=== PATIENT | male | born 1945 | race Caucasian/White ===

== ENCOUNTER 2016-10-26 14:28 | Day surgery (SDC) | payer MEDICARE, OTHER ==
[2016-10-26] VITALS (7 sets, daily range): BP systolic 120–179; BP diastolic 61–94; PULSE 85–99; RESP 16; TEMP 97.8–98.6; O2SAT 94–97
[~2016-10-26] VITALS: Ht 185.4 cm; Wt 91.0 kg
[~2016-10-26 14:28] MED LIST: ADVAI500I INH; ALBU0.086 INH; CARD8TAB6 PO; CIAL5TAB PO; CYMB60CA PO; DIAZ5 PO; DULC100C; FLON0.053; GLUC15002; LISI-360 PO; OMEP20CA5 PO; ONDANSETRON HCL 4 MG/2 ML VIAL IV PUSH ONE; PRAV40TA2 PO; PROPOFOL 200 MG/20 ML AMP IV ONE; WELLTAB39 PO; ZYRT10TA12 PO
[2016-10-26] MEDS ORDERED: CADU5TAB2 PO (14:58)
[2016-10-26] MEDS ORDERED: OMEP20TA PO (14:58)
[2016-10-26] MEDS ORDERED: DIAZ2TAB PO (14:58)
[2016-10-26] MEDS ORDERED: TRENTAL PO (14:58)
[2016-10-26] MEDS ORDERED: MONT10TA2 PO (14:58)
[2016-10-26] MEDS ORDERED: VITA60003 PO (14:58)
[2016-10-26] MEDS ORDERED: BUPR300T PO (14:58)
[2016-10-26] MEDS ORDERED: CARD8TAB2 PO (14:58)
[2016-10-26] MEDS ORDERED: ADVA500A INH (14:58)
[2016-10-26] MEDS ORDERED: MULT1TAB84 PO (14:58)
[2016-10-26] MEDS ORDERED: FLUT1SPR5 EACH NARE (14:58)
[2016-10-26] MEDS ORDERED: SPIR25TA PO (14:59)
[2016-10-26] MEDS ORDERED: HYDROmorphone HCL PF 1 MG/ML VIAL IV PUSH ONE ×2 (15:00→16:15)
[2016-10-26 16:09] LABS: APTT (PATIENT) 26.4 SEC (24.3-30.1); PROTHROMBIN TIME - PATIENT 11.4 SEC (9.8-11.6)
--- NOTE | 2016-10-26 16:14 | RADRPT ---
EXAM DATE/TIME: 10/26/2016 15:24 [place] COMPARISON: No previous studies available for comparison. INDICATIONS : Table saw injury to the first, second, third, and fourth digits of the left hand. MEDICAL HISTORY : None. SURGICAL HISTORY : None. ENCOUNTER: Initial ACUITY: 1 day PAIN SCORE: 10/10 LOCATION: Left hand FINDINGS: There is crushing fractures of the second third and fourth distal phalanges worse involving the secon d and third phalanges with extensive soft tissue injury. CONCLUSION: Extensive crushing injury and fractures of the second, third and fourth distal phalanges. Lilinaa Randhawa MD on October 26, 2016 at 16:12 Board Certified Radiologist. This report was verified electronically.
[2016-10-26] MEDS ORDERED: SODIUM CHLOR 0.9% 1000 ML INJ 1,000 ML IV ONE (16:15)
[2016-10-26 16:29] LABS: BICARBONATE 24.5 MEQ/L (21.0-32.0); POTASSIUM 3.6 MEQ/L (3.5-5.1)
[2016-10-26] MEDS ORDERED: BUPIVACAINE HCL PF 0.25% 30 ML VIAL INFIL ONE (17:45)
--- NOTE | 2016-10-26 18:57 | MB ---
cc: ALLYSON PACHECO M.D. DATE OF CONSULTATION 10/26/2016 REASON FOR CONSULTATION Left hand injury. HISTORY OF PRESENT ILLNESS The patient is a 71-year-old male who injured his left hand at home on a table saw. The patient was seen in the emergency room. Consultation is requested regarding evaluation and treatment of the hand injury. ALLERGIES THE PATIENT HAS ALLERGIES TO POSSIBLY A BETA KELI, FLU VACCINE, MACRODANTIN AND NIACIN. PAST MEDICAL HISTORY 1. The patient has history of anxiety disorder. 2. Heart disease. 3. Has a history of melanoma for which he has been treated. SOCIAL HISTORY The patient quit smoking 50 years ago. Alcohol use is daily with dinner. PHYSICAL EXAMINATION GENERAL: On examination the patient is lying comfortably on the stretcher. VITAL SIGNS: Temperature is 98.1, pulse is 89, respirations 16, blood pressure 168/94 and pulse oximetry is 94% on room air. HEENT: His extraocular muscles are intact. Pupils are equal, round and reactive to light. His mouth is clear. NECK: Supple without masses. LUNGS: Clear. HEART: Regular rate and rhythm. EXTREMITIES: Examination of his upper extremities reveals injuries to the left hand. There is pulp missing from the pad of the thumb. There are open fractures on the second and third distal phalanges with some of the tissue missing from the third finger. There appears to be extensor tendon injury at the distal interphalangeal joint of the third finger. There is also a laceration of the fourth finger. IMAGING Review of the x-rays reveals injury to the fingers as noted above with some tissue loss. The index distal phalanx is comminuted as is the distal phalanx of the middle finger. There does not appear to be a fracture of the thumb, just the tissue loss. IMPRESSION Open fractures and soft tissue loss of left hand. PLAN Treatment of the injuries as appropriate. The patient understands and accepts the risks and complications of surgery as well as the need for a cross-finger flap for his thumb. MD SERGE Mayo/JOSHUA /6:40 PM /6:52 PM
[2016-10-26] MEDS ORDERED: ceFAZolin INJ 1,000 MG VIAL IV ONE (19:14)
[2016-10-26] MEDS ORDERED: ACETAMINOPHEN 1000 MG/100 ML VIAL IV ONE (19:36)
[2016-10-26 19:37] LABS: AUTOMATED NEUTROPHIL # 9.6 TH/MM3 (1.8-7.7); BASOPHIL % 0.4 % (0.0-2.0); EOSINOPHIL # 0.1 TH/MM3 (0-0.4); EOSINOPHIL % 1.2 % (0.0-4.0); HEMATOCRIT 45.3 % (39.0-51.0); HEMO FLAGS DIFF FINAL; LYMPH % 9.7 % (9.0-44.0); LYMPHOCYTE # 1.1 TH/MM3 (1.0-4.8); MEAN CELL VOLUME 92.9 FL (80.0-100.0); MEAN CORPUSCULAR HEMOGLOBIN 31.4 PG (27.0-34.0); MEAN CORPUSCULAR HGB CONC 33.8 % (32.0-36.0); MONO % 5.6 % (0.0-8.0); NEUT % 83.1 % (16.0-70.0); PLATELET COUNT 249 TH/MM3 (150-450); RED BLOOD COUNT 4.87 MIL/MM3 (4.50-5.90); RED CELL DISTRIBUTION WIDTH 13.7 % (11.6-17.2); WHITE BLOOD COUNT 11.6 TH/MM3 (4.0-11.0)
--- NOTE | 2016-10-26 19:59 | PD ---
HPI Chief Complaint: Laceration/Skin Injury Time Seen by Provider: 14:42 Travel History International Travel<30 days: No Contact w/Intl Traveler<30days: No Traveled to known affect area: No History of Present Illness HPI Patient is a 71-year-old male who comes in after a table saw accident. He was helping a friend in the table saw got stuck and he tried to fix it and cut his left hand. EMS was immediately called and brought him in. He denies any other injuries. He was feeling in his normal state of health prior to the injury. He reports history of anxiety and is feeling very anxious currently. PFSH Past Medical History Asthma: Yes (QUESTIONABLE) Anxiety: Yes Depression: Yes Cancer: Yes (SKIN CANCER RIGHT UPPER ARM FOR MELANOMA 2006) Cardiac Catheterization: Yes Cardiovascular Problems: Yes (HTN) High Cholesterol: Yes Hiatal Hernia: Yes Hypertension: Yes Kidney Stones: Yes Respiratory: Yes (SINUS PROBLEMS) Tetanus Vaccination: < 5 Years Influenza Vaccination: No Past Surgical History Ear Surgery: Yes (RHINOPLASTY) Tonsillectomy: Yes Other Surgery: Yes (, NASAL SURGERY) Social History Alcohol Use: Yes (BEER WITH DINNER AT NIGHT) Tobacco Use: No Substance Use: No Allergies-Medications (Allergen,Severity, Reaction): Coded Allergies: Flu Vaccine (Verified Allergy, Severe, Anaphylaxis, 10/26/16) Macrodantin (Verified Allergy, Severe, RASH, 10/26/16) Niacin (Verified Allergy, Severe, Hives, 10/26/16) Uncoded Allergies: ?BETA KELI (Allergy, Mild, 07/02/07) Reported Meds & Prescriptions Reported Meds & Active Scripts Active Reported Spironolactone 25 Mg Tab 25 Mg PO DAILY Vitamin E (Vitamin E (Topical)) 100 Unit/Gm Cre Unknown Dose PO DAILY Multivitamin Adults (Multiple Vitamins W/ Minerals) 1 Tab 1 Tab PO DAILY [Trental] 200 Mg PO BID Bupropion HCl ER 24 HR (Bupropion HCl) 300 Mg Tab 300 Mg PO DAILY Diazepam 2 Mg Tab 2 Mg PO BID Omeprazole 20 Mg Tab 20 Mg PO DAILY Singulair (Montelukast Sodium) 10 Mg Tab 10 Mg PO HS Flonase Nasal [place] (Fluticasone Nasal [place]) 50 Mcg/Act [place] 50 Mcg EACH NARE DAILY Advair Diskus Inh (Fluticasone-Salmeterol Inh) 500-50 Mcg/Blist Aer 1 Puff INH DAILY Rinse mouth after use. Cardura (Doxazosin Mesylate) 8 Mg Tab 8 Mg PO DAILY [place] (Amlodipine-Atorvastatin) 5-20 Mg Tab 1 Tab PO DAILY Review of Systems Except as stated in HPI: all other systems reviewed are Neg General / Constitutional: No: Fever, Chills HENT: No: Headaches, Lightheadedness Cardiovascular: No: Chest Pain or Discomfort Respiratory: No: Shortness of Breath Gastrointestinal: No: Nausea, Vomiting Musculoskeletal: Positive: Pain Skin: No Rash Neurologic: No: Weakness, Dizziness Physical Exam Narrative GENERAL: Awake and alert, anxious SKIN: Located lacerations of the left second, third, and fourth finger as well as the left thumb. HEAD: Atraumatic. Normocephalic. EYES: Pupils equal and round. No scleral icterus. ENT: Mucous membranes pink and moist. NECK: Trachea midline. No JVD. CARDIOVASCULAR: Regular rate and rhythm. No murmur appreciated. RESPIRATORY: No accessory muscle use. Clear to auscultation. Breath sounds equal bilaterally. MUSCULOSKELETAL: Obvious deformities of the left second third and fourth fingers. He is able to fully extend and flex all of his fingers. Sensation is intact to his entire left hand. Radial pulses intact. NEUROLOGICAL: Awake and alert. No obvious cranial nerve deficits. Motor grossly within normal limits. Normal speech. PSYCHIATRIC: Appropriate mood and affect; insight and judgment normal. Data Data Last Documented VS Vital Signs Date Time Temp Pulse Resp B/P Pulse Ox O2 Delivery O2 Flow Rate FiO2 10/26/16 17:00 89 16 159/70 94 Room Air 10/26/16 16:35 98.1 Orders Hand, Complete ([id number]) (10/26/16 ) Hydromorphone Pf Inj (Dilaudid Pf Inj) (10/26/16 15:00) Cefazolin Inj (Ancef Inj) (10/26/16 15:00) Complete Blood Count With Diff (10/26/16 14:58) Basic Metabolic Panel (Bmp) (10/26/16 14:58) Act Partial Throm Time (Ptt) (10/26/16 14:58) Prothrombin Time / Inr (Pt) (10/26/16 14:58) Hydromorphone Pf Inj (Dilaudid Pf Inj) (10/26/16 16:15) Sodium Chlor 0.9% 1000 Ml Inj (Ns 1000 M (10/26/16 16:15) Bupivacaine Pf 0.25% Inj (Marcaine Pf 0. (10/26/16 17:45) Admit Order (Ed Use Only) (10/26/16 ) Labs Laboratory Tests Test 10/26/16 10/26/16 15:10 15:20 Prothrombin Time 11.4 SEC Prothromb Time International 1.0 RATIO Ratio Activated Partial 26.4 SEC Thromboplast Time Sodium Level 143 MEQ/L Potassium Level 3.6 MEQ/L Chloride Level 110 MEQ/L Carbon Dioxide Level 24.5 MEQ/L Anion Gap 9 MEQ/L Blood Urea Nitrogen 23 MG/DL Creatinine 1.08 MG/DL Estimat Glomerular Filtration 67 ML/MIN Rate Random Glucose 127 MG/DL Calcium Level 8.7 MG/DL White Blood Count 11.6 TH/MM3 Red Blood Count 4.87 MIL/MM3 Hemoglobin 15.3 GM/DL Hematocrit 45.3 % Mean Corpuscular Volume 92.9 FL Mean Corpuscular Hemoglobin 31.4 PG Mean Corpuscular Hemoglobin 33.8 % Concent Red Cell Distribution Width 13.7 % Platelet Count 249 TH/MM3 Mean Platelet Volume 8.7 FL Neutrophils (%) (Auto) 83.1 % Lymphocytes (%) (Auto) 9.7 % Monocytes (%) (Auto) 5.6 % Eosinophils (%) (Auto) 1.2 % Basophils (%) (Auto) 0.4 % Neutrophils # (Auto) 9.6 TH/MM3 Lymphocytes # (Auto) 1.1 TH/MM3 Monocytes # (Auto) 0.6 TH/MM3 Eosinophils # (Auto) 0.1 TH/MM3 Basophils # (Auto) 0.0 TH/MM3 CBC Comment DIFF FINAL Differential Comment MDM Medical Decision Making Medical Screen Exam Complete: Yes Emergency Medical Condition: Yes Differential Diagnosis Open fracture versus complex laceration versus partial amputation Narrative Course Patient is a 71-year-old male who comes in after a table saw accident. Exam shows complex lacerations and deformities of the left thumb, second, third, fourth fingers. Eyes, labs sent. Patient given Dilaudid for pain. Hand surgery consult it. X-ray performed shows a bojorquez injuries of the second, third , and fourth finger. Given Ancef. Patient had a tetanus vaccine in the past 5 years. Patient taken to the OR by Dr. Moyer. Will be dispositioned from the OR. Diagnosis Primary Impression: Crush injury of hand Qualified Code: S67.22XA - Crush injury of hand, left, initial encounter Additional Impression: Open fracture Admitting Information Admitting Physician Requests: Admit Cammie Kessler MD Oct 26, 2016 19:59
[2016-10-26] MEDS ORDERED: DO NOT ADM ANY ANTICOAGULANT DRUGS PRN (21:52)
[2016-10-26] MEDS ORDERED: DEXT 5%-NACL 0.45% 1000 ML INJ 1,000 ML IV SCH (21:53)
--- NOTE | 2016-10-26 21:53 | HHI.PR ---
Immediate Post Op Note Procedure Date: Oct 26, 2016 Pre Op Diagnosis: (1) Open fracture (2) Open wound of hand, complicated Post Op Diagnosis: (1) Open fracture (2) Open wound of hand, complicated Surgeon: Vani Moyer Box Sealing Machine Feeder(s): None. Procedure: 1. Cross finger flap to left thumb from index finger. 2. Full thickness skin graft to donor area left index finger. 3. Repair open fractures and complex wound left index finger. 4. Repair open fractures and complex wound left third finger. 5. Repair laceration to left ring finger. Anesthesia: General Drains: None Tourniquet time (min at mmHg) 120 minutes at 220 mmHg Patient to: PACU Patient Condition: Good Date/Time of Procedure: SEE SURGICAL CARE RECORD Vani Moyer MD Oct 26, 2016 21:53
[2016-10-26] MEDS ORDERED: NORC5TAB PO (21:56)
[2016-10-26] MEDS ORDERED: IBUP800T23 PO (21:56)
[2016-10-26] MEDS ORDERED: fentaNYL CITRATE 250 MCG/5 ML AMP ONE (21:59)
[2016-10-26] MEDS ORDERED: MORPHINE SULFATE 4 MG/ML INJ ONE (21:59)
[2016-10-26] MEDS ORDERED: KETOROLAC TROMETHAMINE 30 MG/ML (IVP) VIAL IVP ONE (22:00)
[2016-10-26] MEDS ORDERED: SODIUM CHLORIDE 0.9% FLUSH 5 ML FLUSH IVF PRN (22:00)
[2016-10-27] MEDS ORDERED: SODIUM CHLORIDE 0.9% FLUSH 5 ML FLUSH IVF SCH (09:00)
--- NOTE | 2016-10-28 08:46 | MP ---
cc: ALLYSON PACHECO M.D. DATE OF SURGERY 10/26/2016 PREOPERATIVE DIAGNOSIS Open wound of left hand from a table saw. POSTOPERATIVE DIAGNOSES 1. Pulp loss distal phalanx left thumb. 2. Open fractures with complex wound left index finger distal phalanx. 3. Open fractures and complex wound third finger distal phalanx left hand. 4. Laceration distal phalanx of left hand ring finger. POSTOPERATIVE DIAGNOSES 1. Pulp loss distal phalanx left thumb. 2. Open fractures with complex wound left index finger distal phalanx. 3. Open fractures and complex wound third finger distal phalanx left hand. 4. Laceration distal phalanx of left hand ring finger. PROCEDURES 1. Cross-finger flap to left thumb from index finger. 2. Full-thickness skin graft from arm to donor area on index finger. 3. Repair open fractures and complex wound of left index finger, 3-cm in length. 4. Repair open fractures and complex wound distal phalanx of left third finger, 4-cm in length. 5. Repair 2-cm laceration of left ring finger distal phalanx. ANESTHESIA General. SURGEON Dr. Pacheco INDICATION A 71-year-old male who was injured by a table saw earlier today. FINDINGS At the completion of the procedure, all wounds had been approximated and closed. TOURNIQUET TIME 2 hours. PROCEDURE The patient was seen preoperatively. The sites and side were identified and marked. The patient was then taken to the operating room, placed in supine position. His identity was checked against the arm band and the consent form, site and side confirmed, time-out called prior to beginning the procedure. The left upper extremity was prepped with Hibiclens and draped in the usual sterile fashion. The arm was exsanguinated and the tourniquet inflated to 220 mmHg. Bupivacaine 0.25% plain was used make a median nerve block as well as a dorsal radial nerve block as well as block of the ulnar digital nerve of the left ring finger. Attention was turned to the ring finger first where the wound was copiously irrigated with saline and closed with interrupted 5-0 nylon suture material. Once this was approximated, attention was turned to the third finger where the bits of bone wound were debrided as was some extensor tendon and some nail bed. The wounds were then repaired with 5-0 Prolene. Attention was turned to the index finger where the tip was repaired. Part of it had to be debrided as they were partially devitalized. The nail plate was cut back. The nail bed was approximated by approximating the nail plate which was sewn as well as many sutures to the lacerated pulp of the finger. Attention then turned to the thumb which was debrided and irrigated. A flap was created by incising on three sides of the dorsal aspect of the index finger over the proximal phalanx. The incision was made down through the skin, down to the subcutaneous tissue. Under loupe magnification the flap was elevated and raised, small vessels were cauterized with bipolar cautery. It was then sewn into the thumb as a cross-finger flap. A skin graft was harvested by taking piece of skin as an ellipse. The defect measured 2 cm x 1.5 cm. The ellipse was drawn, was infiltrated with bupivacaine and cut with a 15 blade. Undermining was carried out and the wound was closed with interrupted 4-0 Vicryl and 5-0 nylon to the skin. The excess subcutaneous tissue was removed off of the skin graft and it was then sewn into the defect with 5-0 Prolene suture material. Once it was sewn into place, several cuts were made in the graft to allow for drainage. A central basting stitch was made. Several sutures were left long. Povidone-iodine ointment was then applied to the graft along with Adaptic, Telfa and cotton ball which were sewn on top of the graft as a bolus. The tourniquet was released after 2 hours of tourniquet time. The hand was then cleansed of Betadine, Hibiclens and blood and dressed with povidone-iodine ointment, Adaptic, Telfa, fluffy gauze, hand wrap and a splint. The patient was then taken from the operating room to the recovery room in satisfactory condition having tolerated the procedure well. Postoperative structures include keeping the arm elevated, keeping it clean and dry and returning in several days for followup. The patient was given a prescription for [place] and ibuprofen. MD SERGE Mayo/YONAS /10:00 PM /8:22 AM
[2016-11-10] MEDS ORDERED: VIAG100T PO (09:53)
[2016-11-12] MEDS ORDERED: IBUP800T23 PO (10:12)
== END 2016-10-26 23:13 | disposition home or self-care (01) ==
LOC: NEPE 14:28 → NEDA 18:18 → HSDC 18:18 → NEPE 23:13
PROVIDERS: ATTEND Specialist
DX: S62.631B Displaced fracture of distal phalanx of left index finger, initial encounter for open fracture (principal); S62.633B Displaced fracture of distal phalanx of left middle finger, initial encounter for open fracture; S61.002A Unspecified open wound of left thumb without damage to nail, initial encounter; S61.215A Laceration without foreign body of left ring finger without damage to nail, initial encounter; M79.642 Pain in left hand; F41.9 Anxiety disorder, unspecified; I10 Essential (primary) hypertension; W31.2XXA Contact with powered woodworking and forming machines, initial encounter
CPT/HCPCS: 00300; 11010; 12001; 13131; 14350; 15240; 73130; 80048; 85025; 85610; 85730; 96365; 96375; 96376; 99284; J0131; J0690; J1170; J1885; J2270; J2405; J3010; J7030

== ENCOUNTER → 2016-11-10 | Day surgery (SDC) | payer MEDICARE, OTHER ==
[~2016-11-10] VITALS: Ht 185.4 cm; Wt 91.0 kg
[~2016-11-10] MED LIST changes: +ADVA500A INH; -ADVAI500I INH; -ALBU0.086 INH; +BUPIVACAINE HCL PF 0.5% 30 ML VIAL ONE; +BUPR300T PO; +CADU5TAB2 PO; +CARD8TAB2 PO; -CARD8TAB6 PO; -CIAL5TAB PO; -CYMB60CA PO; +DEXT 5%-NACL 0.45% 1000 ML INJ 1,000 ML IV SCH; +DIAZ2TAB PO; -DIAZ5 PO; -DULC100C; +FAMOTIDINE 20 MG/2 ML VIAL ONE; -FLON0.053; +FLUT1SPR5 EACH NARE; -GLUC15002; +IBUP800T23 PO; +LACTATED RINGER'S 1000 ML INJ 1,000 ML ONE; -LISI-360 PO; +MIDAZOLAM HCL 2 MG/2 ML VIAL ONE; +MONT10TA2 PO; +MULT1TAB84 PO; +NORC5TAB PO; -OMEP20CA5 PO; +OMEP20TA PO; +POVIDONE IODINE 10% OINT 1 PACKET TOPICAL ONE; -PRAV40TA2 PO; +SODIUM CHLORIDE 0.9% FLUSH 5 ML FLUSH IVF PRN; +SODIUM CHLORIDE 0.9% FLUSH 5 ML FLUSH IVF SCH; +SPIR25TA PO; +TRENTAL PO; +VIAG100T PO; +VITA60003 PO; -WELLTAB39 PO; -ZYRT10TA12 PO
[2016-11-10 10:00] VITALS: BP 137/82; PULSE 60; RESP 20; TEMP 98.4; O2SAT 96
--- NOTE | 2016-11-10 10:04 | HP.UPD ---
H&P Update Date: November 10, 2016 Note The Pre-Admit History and Physical Examination regarding the above named patient was reviewed (including, but not limited to, vital signs, medications, allergies, co-morbid conditions), and upon re-examination it is noted that: Indicated with "X" x - the patient's condition has not significantly changed since the last examination. [] - the patient's condition has changed since the last examination. Changes: Vani Moyer MD November 10, 2016 10:03
[2016-11-10 14:25] VITALS: PULSE 61
--- NOTE | 2016-11-10 14:32 | HHI.PR ---
Immediate Post Op Note Procedure Date: November 10, 2016 Pre Op Diagnosis: (1) Open wound of thumb Post Op Diagnosis: (1) Open wound of thumb Surgeon: Vani Moyer Creative Manager(s): None. Procedure: Takedown and inset of cross-finger flap to left thumb. Anesthesia: General Drains: None Tourniquet time (min at mmHg) 9 minutes at 220 mm Hg. Patient to: PACU Patient Condition: Good Date/Time of Procedure: SEE SURGICAL CARE RECORD Vani Moyer MD November 10, 2016 14:32
[2016-11-10 15:15] VITALS: PULSE 67; TEMP 98
[2016-11-10 16:00] VITALS: BP 136/83; PULSE 67; RESP 14; O2SAT 97
--- NOTE | 2016-11-11 10:29 | MP ---
cc: ALLYSON PACHECO M.D. DATE OF SURGERY 11/09/2016 PREOPERATIVE DIAGNOSIS Status post cross-finger flap to left thumb from left index finger. POSTOPERATIVE DIAGNOSIS Status post cross-finger flap to left thumb from left index finger. PROCEDURE Take down and inset of cross-finger flap ANESTHESIA General SURGEON Dr. Pacheco INDICATION This is a 71-year-old male status post cross finger flap to his left thumb after a table saw injury. FINDINGS At the completion of the procedure, the flap had been inset. It showed adequate perfusion. TOURNIQUET TIME Nine minutes. PROCEDURE The patient was seen preoperatively where the site and side identified and marked. The patient was then taken to the operating room and placed in the supine position. His identity was checked against the arm band and the consent form site and side confirmed, time-out called prior to the beginning of the procedure. The left upper extremity was prepped with Hibiclens and draped in the usual sterile fashion. The sutures which had been placed previously in his arm, as well as on his fingers were removed. The area was additionally prepped with povidone-iodine solution using Q-tips in the area of the [id number] contact and cracks and crevases. The area to be incised was identified and the flap was divided using a dissecting scissor. This was done after the arm was exsanguinated and after the tourniquet was placed at 220 mmHg. Once this was completed, the area was cleansed up and several sutures were placed. The flap was debrided slightly. Once the flap had been inset and the donor area also sutured, bupivacaine 0.5% plain was used to make a digital block of the thumb in a dorsal block index finger. After release of the tourniquet after nine minutes, pressure was applied and after several minutes there was no evidence of any oozing and a dressing was applied using povidone-iodine ointment, Adaptic, Telfa, 4x4s and hand wrap. The patient was then taken from the operating room to the recovery room in satisfactory condition having tolerated the procedure well. Postoperative instructions include keeping the arm elevated, keeping the area clean and dry and returning in several days for follow up. MD SERGE Mayo/HIRAM /2:36 PM /10:24 AM
== END | disposition home or self-care (01) ==
LOC: PHSDC 09:11
PROVIDERS: ATTEND Specialist
DX: S61.002D Unspecified open wound of left thumb without damage to nail, subsequent encounter (principal); W31.2XXD Contact with powered woodworking and forming machines, subsequent encounter
CPT/HCPCS: 15620; J2250; J2405; J3010; J7120